=== PATIENT | female | born 1995 | race Hispanic/Latino ===

== ENCOUNTER 2024-09-18 21:35 | Emergency (ER) | payer BC ==
--- OUTSIDE RECORDS SUMMARY | 2024-09-18 21:38 | XMS REPORT | Continuity of Care Document ---
Author Name Unknown Address [address] [place] [address] [address] [place] [address] [facility] [place] Address [address] [facility] [address] [place] [address] Care Team Providers Care Tyre Retreader Name Role Phone PCP, PATIENT DOES NOT HAVE A Primary Care Physic noman Unavailable KULDEEP Attending Clinician Unavailable AKHIL Attending Clinician Unavailable MARKOS OSORIO Attending Clinician Unavail able Lab, Adc Fam Pob I Attending Clinician Unavailab Skylar Iqbal Attending Clinician SKYLAR SOUTH Attending Clinician Unavailable Aditi Mo RN Attending Clinician Unavailable KULDEEP Admitting Clinician Unavailable AKHIL Admitting Clinician Unavailable Payers Payer Name Policy Type Policy Number Effective Date Expirati on Date Source [place] [id number] 2018 00:00:00 [place] [id number] 2018 00:00:00 Allergies, Adverse Reactions, Alerts Allergy Name Allergy Type Status Severity Reaction(s) Onset Date Inactive Date Treating Clinician Comments Source NO KNOWN ALLERGIE S Drug [facility] Latex Allergy to substanc e Active Moderate Rash [facility] Social History Social Habit Start Date Stop Date Quantity Comments Source Sex Assigned At [facility] Exposure to SARS-CoV-2 (event) Not sure [facility] Smoking Status Start Date Stop Date Source Unknown if ever smoked [facility] Never Smoker [facility] Vital Signs Vital Name Observation Time Observation Value Comments S ource BP Diastolic 2022-09-16 00:00:00 79 mm[Hg] [facility] Height 2022-09-16 00:00:00 61 [in_i] Isaias or[facility] BMI (Body Mass Index) 2022-09-16 00:00:00 39.1 kg/m2 [facility] BP Systolic 2022-09-16 00:00:00 119 mm[Hg] Fabian fatimah [facility] Body Weight 2022-09-16 00:00:00 207 [lb_av] [facility] Plan of Care Planned Activity Planned Date Details Comments Source Diagnostic Test Pending 2022-09-16 00:00:00 cytology report, thin prep, smear or scraping, cervical or vaginal [code = cytology report, thin prep, smear or scraping, cervical or vaginal] [facility] Diagnostic Test Pending 2022-09-16 00:00:00 CBC w/ auto diff [code = CBC w/ auto diff] [facility] Diagnostic Test Pending 2022-09-16 00:00:00 CMP, serum or plasma [code = CMP, serum or plasma] [facility] Diagnostic Test Pending 2022-09-16 00:00:00 TSH + free T4, serum [code = TSH + free T4, serum] [facility] Diagnostic Test Pending 2022-09-16 00:00:00 lipid panel, serum [code = lipid panel, serum] [facility] Encounters Start Date/Time End Date/Time Encounter Type Admission Type Attending Clinicians Care Facility Care Department Encounter ID Source 2023-03-14 00:00:00 2023-03-14 00:00:00 Outpatient LISTER_MELI [facility] [id number] 2022-09-16 00:00:00 2022-09-16 00:00:00 Outpatient LISTER_MELI [facility] [id number] [facility] 2022-09-16 00:00:00 2022-09-16 00:00:00 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 [facility] [place] - [place] [facility] - [facility] LEAD RELAY TESTER [id number] [facility] 2022-09-09 00:00:00 2022-09-09 00:00:00 Outpatient WILFREDO_SHELBYI [facility] [id number] [facility] 2022-03-12 00:00:00 2022-03-12 00:00:00 Outpatient AMBREEN_FAR HANA [facility] [id number] [facility] 2021-11-18 09:00:00 2021-11-18 09:00:00 Outpatient AMBREEN_FAR HANA [facility] [id number] [facility] 2021-05-07 14:15:00 2021-05-07 14:15:00 Outpatient MARKOS LEVI [facility] [id number] [facility] 2021-01-16 04:27:00 2021-01-16 04:27:00 Outpatient AMBREEN_FAR HANA [facility] [id number] [facility] 2020-05-19 10:42:00 2020-05-19 10:42:00 Outpatient AMBREEN_FAR HANA [facility] [id number] [facility] 2020-03-07 08:48:46 2020-03-07 09:08:46 Laboratory Only Lab, Adc Fam Pob Skylar Mcintosh [facility] Office [facility] One [id number] [facility] 2020-03-07 08:40:00 2020-03-07 08:40:00 Outpatient R [facility] [id number] [facility] 2019-12-05 13:45:59 2019-12-05 14:05:59 Laboratory Only Lab, Adc Fam Pob [facility] Building One [id number] [facility] 2019-12-05 13:40:00 2019-12-05 13:40:00 [facility] [id number] [facility] 2019-12-05 00:00:00 2019-12-05 00:00:00 Telephone Aditi Mo [facility] [id number] [facility] 2019-10-03 11:58:00 2019-10-03 11:58:00 Outpatient HUNG_KHRIS PATTEN [facility] [id number] Results Test Description Test Time Test Comments Results Result Co mments Source [facility]
--- NOTE | 2024-09-18 22:21 | RAD REPORT ---
EXAMINATION: Femur Left VIEWS: As above CLINICAL INDICATION: Female, 28 years old. PAIN COMPARISON: No prior exam. IMPRESSION: No acute fracture of the left femur. No dislocation at the hip. Visualized portions of the left knee are unremarkable.
--- NOTE | 2024-09-18 22:22 | RAD REPORT ---
EXAM: Hand Left 3 View HISTORY: PAIN COMPARISON: None FINDINGS: Bones: No acute fracture identified. Alignment:No significant malalignment. Degenerative changes:None significant. Other: n/a IMPRESSION: No acute osseous abnormality involving the imaged hand.
--- NOTE | 2024-09-18 22:22 | RAD REPORT ---
EXAMINATION: Forearm Left VIEWS: As above CLINICAL INDICATION: Female, 28 years old. PAIN COMPARISON: No prior exam. IMPRESSION: No acute fracture. No acute soft tissue abnormality. No radiopaque foreign body.
[2024-09-18] MEDS ORDERED: IBUPROFEN 200 MG TAB PO ONE (22:27)
--- NOTE | 2024-09-18 22:29 | ER ---
Nurse's Notes [facility] Name: Tonya Craft Age: 28 yrs Sex: Female : 1995 Arrival Date: 09/18/2024 Time: 21:35 Bed DX3 Private MD: Diagnosis: Pain in left wrist;Pain in left leg Presentation: 09/18 21:56 Chief complaint: Patient states: fell off the top of a 4 foot ladder today landing on nj1 her left side. c/o pain to left wrist and hand and left lateral thigh. Pain 7-10. Coronavirus screen: Vaccine status: Patient reports receiving the 2nd dose of the covid vaccine. Ebola Screen: No symptoms or risks identified at this time. Initial Sepsis Screen: Does the patient meet any 2 criteria? No. Patient's initial sepsis screen is negative. Does the patient have a suspected source of infection? No. Patient's initial sepsis screen is negative. Risk Assessment: Do you want to hurt yourself or someone else? Patient reports no desire to harm self or others. Onset of symptoms was September 18, 2024. 21:56 Method Of Arrival: Ambulatory [facility] 21:56 Acuity: SALLY 4 nj1 Triage Assessment: 22:33 General: Appears in no apparent distress. uncomfortable, slender, Behavior is calm, vc1 cooperative, appropriate for age. Pain: Complains of pain in left wrist. EENT: No deficits noted. No signs and/or symptoms were reported regarding the EENT system. Neuro: Level of Consciousness is awake, alert, obeys commands, Oriented to person, place, time, situation, Appropriate for age. Cardiovascular: Capillary refill < 3 seconds. Respiratory: Airway is patent. GI: No deficits noted. No signs and/or symptoms were reported involving the gastrointestinal system. : No deficits noted. No signs and/or symptoms were reported regarding the genitourinary system. Derm: Skin is intact, is healthy with good turgor, Skin is dry, Skin is normal, Skin temperature is warm. Musculoskeletal: Circulation, motion, and sensation intact. Range of motion: intact in all extremities. 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 - Infectious Disease History:: Denies. - Social history:: Smoking status: Patient denies any tobacco usage or history of. Screenin:33 [facility] ED Fall Risk Assessment (Adult) History of falling in the last 3 months, vc1 including since admission Yes- single mechanical fall (1 pt) Confusion or Disorientation No (0 pts) Intoxicated or Sedated No (0 pts) Impaired Gait No (0 pts) Mobility Assist Device Used No (0 pt) Altered Elimination No (0 pt) Score/Fall Risk Level 0 - 2 = Low Risk Oriented to surroundings, Maintained a safe environment, Educated pt \T\ family on fall prevention, incl call for assistance when getting out of bed. Abuse screen: Denies threats or abuse. Nutritional screening: No deficits noted. Tuberculosis screening: No symptoms or risk factors identified. Vital Signs: 21:56 BP 138 / 93; Pulse 93; Resp 17; Temp 98.4; Pulse Ox 97% ; Weight 95.25 kg; Height 5 ft. me1 2 in. ; Pain 7/10; 21:56 Body Mass Index 38.41 (95.25 kg, 157.48 cm) me1 21:56 Pain Scale: Adult me1 ED Course: 21:38 Patient arrived in ED. gm2 21:39 Jessica Fu FNP-C [facility] kb 21:39 Jeremy Tobias MD is Attending Physician. kb 21:58 Triage completed. me1 21:58 Arm band placed on Patient placed in waiting room. me1 22:15 Femur Left XRAY In Process Unspecified. EDMS 22:15 Forearm Left XRAY In Process Unspecified. EDMS 22:15 Hand Left 3 View XRAY In Process Unspecified. EDMS 22:25 Yolanda Bartholomew, LUCRETIA is Primary Nurse. vc1 22:33 No provider procedures requiring assistance completed. Patient did not have IV access vc1 during this emergency room visit. 22:35 Patient has correct armband on for positive identification. Provided Education on: f/u vc1 if pain continues. Administered Medications: 22:32 Drug: Ibuprofen PO 600 mg PO once Route: PO; vc1 22:32 Follow up: Response: Medication administered at discharge. vc1 Medication: 22:33 VIS not applicable for this client. vc1 Outcome: 22:28 Discharge ordered by . justyna 22:34 Discharged to home ambulatory, vc1 22:34 Condition: stable 22:34 Discharge instructions given to patient, Instructed on discharge instructions, follow up and referral plans. Demonstrated understanding of instructions, follow-up care, 22:35 Patient left the ED. vc1 Signatures: Dispatcher [employer] EDJessica Yu FNP-C FNP-Yolanda Lopez RN RN vc1 Brook Vera RN RN me1 Deena Peña 2 Corrections: (The following items were deleted from the chart) :58 21:58 Allergies: No Known Allergies; me1 me1 :58 21:58 PSHx: Unable to Obtain; me1 me1
--- NOTE | 2024-09-18 22:29 | EDPHYS ---
Physician Documentation [facility] Name: Tonya Craft Age: 28 yrs Sex: Female : 1995 Arrival Date: 09/18/2024 Time: 21:35 Bed DX3 Private MD: ED Physician Jeremy Tobias HPI: 09/18 22:27 This 28 yrs old Female presents to ER via Ambulatory with complaints of Fall kb Injury. 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 States she was about 4 rungs up on a ladder, missed one when she coming down and fell onto left side. 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 . 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 - Infectious Disease History:: Denies. - Social history:: Smoking status: Patient denies any tobacco usage or history of. ROS: 22:25 Constitutional: As per HPI kb Exam: 22:25 Constitutional: This is a well developed, well nourished patient who is awake, alert, kb and in no acute distress. Head/Face: Normocephalic, atraumatic. ENT: Moist Mucous membranes Neck: Trachea midline and no cervical lymphadenopathy. Supple, full range of motion without nuchal rigidity, or vertebral point tenderness. No Meningismus. Cardiovascular: Regular rate Respiratory: Respirations even and unlabored. No increased work of breathing. Talking in full sentences Abdomen/GI: Soft, non-tender. No distention Back: No spinal tenderness. No costovertebral tenderness. Full range of motion. Skin: Warm, dry with normal turgor. Normal color. Neuro: Awake and alert, GCS 15, oriented to person, place, time, and situation. 22:25 Musculoskeletal/extremity: Extremities: grossly normal except: noted in the left wrist: decreased ROM, pain, tenderness, noted in the left quadriceps: pain, tenderness, ROM: limited active range of motion due to pain, Circulation is intact in all extremities. Sensation intact. Weight bearing: able to fully bear weight, Vital Signs: 21:56 BP 138 / 93; Pulse 93; Resp 17; Temp 98.4; Pulse Ox 97% ; Weight 95.25 kg; Height 5 ft. me1 2 in. ; Pain 7/10; 21:56 Body Mass Index 38.41 (95.25 kg, 157.48 cm) me1 21:56 Pain Scale: Adult me1 MDM: 21:39 Medical Screening Exam initiated kb 22:26 Differential diagnosis: contusion, fracture. Data reviewed: vital signs, nurses notes. kb Counseling: I had a detailed discussion with the patient and/or guardian regarding the historical points, exam findings, and any diagnostic results supporting the discharge/admit diagnosis, radiology results, the need for outpatient follow up, a orthopedic surgeon, to return to the emergency department if symptoms worsen or persist or if there are any questions or concerns that arise at home. 09/18 21:54 Order name: Femur Left XRAY; Complete Time: 22:22 kb 09/18 21:54 Order name: Forearm Left XRAY; Complete Time: 22:22 kb 09/18 21:54 Order name: Hand Left 3 View XRAY; Complete Time: 22:23 kb 09/18 22:23 Order name: Brian Wrap; Complete Time: 22:26 kb Administered Medications: 22:32 Drug: Ibuprofen PO 600 mg PO once Route: PO; vc1 22:32 Follow up: Response: Medication administered at discharge. vc1 Disposition: 09/19 03:20 Co-signature as Attending Physician, Jeremy Tobias MD I agree with the assessment sp4 and plan of care. I reviewed the patient's care provided by the Advanced Practice Provider and agree with the diagnosis and treatment plan. Disposition Summary: 09/18/24 22:28 Discharge Ordered Notes: Location: Home kb Condition: Stable kb Diagnosis - Pain in left wrist kb - Pain in left leg kb Followup: kb - With: Emergency Department - When: As needed - Reason: Worsening of condition Followup: kb - With: Private Physician - When: 2 - 3 days - Reason: Recheck today's complaints, Continuance of care, Re-evaluation by your physician Discharge Instructions: - Discharge Summary Sheet kb - Musculoskeletal Pain kb Forms: - Medication Reconciliation Form kb - Antibiotic Education kb - Prescription Opioid Use kb - Patient Portal Instructions kb - Leadership Thank You Letter kb Signatures: Dispatcher [employer] EDMS Jessica Fu FNP-C FNP-Yolanda Lopez, RN RN vc1 Jeremy Tobias MD MD sp4 Brook Vera RN RN me1 Corrections: (The following items were deleted from the chart) 09/18 21:55 21:55 Hand Left 3 View+RAD.RAD.BRZ ordered. EDMS EDMS :58 21:58 Allergies: No Known Allergies; me1 me1 :58 21:58 PSHx: Unable to Obtain; me1 me1
[2024-09-18 23:03] VITALS: BP 138/93; TEMP 98.4; O2SAT 97
== END 2024-09-18 22:35 | disposition home or self-care (01) ==
LOC: ER 21:35
DX: M25.532 Pain in left wrist (principal); M79.605 Pain in left leg; W11.XXXA Fall on and from ladder, initial encounter
CPT/HCPCS: 99283